=== PATIENT | female | born 1970 | race American Indian/Alaskan Native ===

== ENCOUNTER 2016-09-25 11:40 | Emergency (ER) | payer SELFPAY ==
[2016-09-25 12:51] LABS: Bacteria,Urine 1+ /HPF (Negative); Bilirubin,Urine NEG (Negative); Blood,Urine LG (Negative); Ketones,Urine NEG (Negative); Leukocyte Esterase,Urine MOD (Negative); Mucus,Urine 1+ /HPF; Nitrite,Urine NEG (Negative); Protein,Urine <15 mg/dL mg/dL (Negative); Urobilinogen,Urine < 2.0 mg/dL (<2.0)
--- NOTE | 2016-09-25 16:16 | Emergency Department Report ---
HPI - General Chief Complaint: Urogenital-Female Time Seen by Provider: 09/25/16 16:05 - HPI HPI: Room 3 The patient is a 46-year-old female presenting with a chief complaint of back pain and discharge. The patient states 2 weeks ago she developed lower back pain that lasted one week and then resolved. The patient states last week she developed urinary frequency. Patient denies dysuria or hematuria. Patient states 5 days ago she developed white vaginal discharge that did not have an older. The patient also noted vaginal itching. The patient denies any history of fever or abdominal pain Location: [see above] Duration: [see above] Quality: Pruritic Severity: Moderate Modifying factors: [see above] Context: [see above] Mode of transportation: Unknown ED Past Medical Hx - Past Medical History Hx Heart Attack/AMI: Yes Additional medical history: CAD. HIGH CHOLESTEROL - Surgical History Hx Coronary Stent: Yes - Family History Family history: no significant - Social History Smoking Status: Never Smoker Substance Use Type: None - Medications Home Medications: Home Medications Medication Instructions Recorded Confirmed Last Taken Type Fluconazole [Diflucan TAB] 150 mg PO ONCE #1 tablet 09/25/16 Unknown Rx Sulfamethoxazole/Trimethoprim 1 each PO BID #14 tablet 09/25/16 Unknown Rx [Bactrim DS TAB] metroNIDAZOLE [Flagyl] 500 mg PO Q12HR #14 tab 09/25/16 Unknown Rx ED Review of Systems ROS: Stated complaint: UTI/POSS BLADDER INFECTION Other details as noted in HPI Comment: All other systems reviewed and negative Constitutional: denies: chills, fever Eyes: denies: eye pain, eye discharge, vision change ENT: denies: ear pain, throat pain Respiratory: denies: cough, shortness of breath, wheezing Cardiovascular: denies: chest pain, palpitations Endocrine: no symptoms reported Gastrointestinal: denies: abdominal pain, nausea, diarrhea Genitourinary: frequency, discharge. denies: dysuria, hematuria, abnormal menses Musculoskeletal: back pain Skin: denies: rash, lesions Neurological: denies: headache, weakness, paresthesias Psychiatric: denies: anxiety, depression Hematological/Lymphatic: denies: easy bleeding, easy bruising Physical Exam - Physical Exam Vital Signs: Vital Signs 09/25/16 11:48 Temperature 98.6 F Pulse Rate 84 Respiratory 16 Rate Blood Pressure 116/80 O2 Sat by Pulse 99 Oximetry Physical Exam: GENERAL: The patient is well-developed well-nourished male sitting in chair not appear to be in acute distress. [] HEENT: Normocephalic. Atraumatic. Extraocular motions are intact. Patient has moist mucous membranes. NECK: Supple. Trachea midline CHEST/LUNGS: Clear to auscultation. There is no respiratory distress noted. HEART/CARDIOVASCULAR: Regular. There is no tachycardia. There is no gallop rub or murmur. ABDOMEN: Abdomen is soft, nontender. Patient has normal bowel sounds. There is no abdominal distention. SKIN: There is no rash. There is no edema. There is no diaphoresis. NEURO: The patient is awake, alert, and oriented. The patient is cooperative. The patient has normal speech MUSCULOSKELETAL: There is no evidence of acute injury. PELVIC: COPIOUS GREEN SEROUS VAGINAL DISCHARGE PRESENT ED Course Vital Signs 09/25/16 11:48 Temperature 98.6 F Pulse Rate 84 Respiratory 16 Rate Blood Pressure 116/80 O2 Sat by Pulse 99 Oximetry ED Medical Decision Making - Lab Data Laboratory Tests 09/25/16 12:17 Urine Color Yellow Urine Turbidity Clear Urine pH 5.0 Ur Specific [place] 1.033 H Urine Protein <15 mg/dl Urine Glucose (UA) Neg Urine Ketones Neg Urine Blood Lg Urine Nitrite Neg Urine Bilirubin Neg Urine Urobilinogen < 2.0 Ur Leukocyte Esterase Mod Urine WBC (Auto) 30.0 H Urine RBC (Auto) 41.0 U Epithel Cells (Auto) 2.0 Urine Bacteria (Auto) 1+ Urine Mucus 1+ Urine HCG, Qual Negative Wet prep-moderate Trichomonas, greater than 20% clue cells, no yeast - Differential Diagnosis urethritis, UTI, bacterial vaginosis, Critical care attestation.: If time is entered above; I have spent that time in minutes in the direct care of this critically ill patient, excluding procedure time. ED Disposition Clinical Impression: UTI (urinary tract infection), Trichomonas vaginalis (TV) infection, Bacterial vaginosis Disposition: DISCHARGED TO HOME OR SELFCARE Is pt being admited?: No Does the pt Need Aspirin: No Condition: Stable Instructions: Bacterial Vaginosis (ED), Trichomoniasis (ED) Additional Instructions: Return to the emergency department immediately should you develop worsening symptoms, fever, inability to tolerate food or liquid or any other concerns. Prescriptions: Fluconazole [Diflucan TAB] 150 mg PO ONCE #1 tablet metroNIDAZOLE [Flagyl] 500 mg PO Q12HR #14 tab Sulfamethoxazole/Trimethoprim [Bactrim DS TAB] 1 each PO BID #14 tablet Referrals: PRIMARY CARE, [Primary Care Provider] - 3-5 Days MALIA MARTINEZ MD [Staff Physician] - 3-5 Days (Dr Martinez is a graphics edit technician. Please follow up with him for further evaluation) Forms: STI Treatment and Prevention Time of Disposition: 17:37
[2016-09-25] MEDS ORDERED: ZITHROMAX PO ONE (17:33)
[2016-09-25] MEDS ORDERED: XYLOCAINE 1% MPF 5 mL INFILTRATI ONE (17:33)
[2016-09-25] MEDS ORDERED: ROCEPHIN IM ONE (17:33)
[2016-09-25 17:38] VITALS: BP 118/80
== END 2016-09-25 17:52 | disposition home or self-care (01) ==
LOC: ED 11:40
DX: N39.0 Urinary tract infection, site not specified (principal); N76.0 Acute vaginitis; A59.01 Trichomonal vulvovaginitis; I25.2 Old myocardial infarction; E78.00 Pure hypercholesterolemia, unspecified; I25.10 Atherosclerotic heart disease of native coronary artery without angina pectoris
CPT/HCPCS: 81001; 81025; 87210; 87591; 96372; 99283; J0696